=== PATIENT | male | born 1990 | race African-American/Black ===

== ENCOUNTER 2019-01-15 05:32 | Emergency (ER) | payer MEDICAID, OTHER ==
[~2019-01-15] VITALS: Ht 190.5 cm; Wt 71.0 kg
[2019-01-15] MEDS ORDERED: MORPHINE SULFATE 4 MG/ML CPJ (NOT FOR IM USE) IV STA (06:28)
[2019-01-15] MEDS ORDERED: DIPHENHYDRAMINE 50MG/ML VIAL IM STA (06:28)
[2019-01-15 07:09] LABS: BASOPHILS % 0.3 % (0.0-2.0); EOSINOPHILS % 0.3 % (0.0-5.0); HEMATOCRIT. 32.3 % (42.0-52.0); HEMOGLOBIN. 11.5 g/dL (14.0-18.0); LYMPHOCYTES % 11.5 % (20.0-50.0); MEAN CORPUSCULAR HEMOGLOBIN 32.5 pg (28.0-32.0); MEAN CORPUSCULAR VOLUME 91.4 fL (80.0-94.0); MEAN PLATELET VOLUME 9.2 fl (7.4-10.4); MONOCYTES % 12.4 % (2.0-8.0); NEUTROPHILS % 75.5 % (40.0-76.0); PLATELET 228 x1000/uL (130-400); RED BLOOD CELL COUNT 3.53 mill/uL (4.7-6.1); RED CELL DISTRIBUTION WIDTH 15.6 % (11.6-14.6)
[2019-01-15 07:37] LABS: CHLORIDE 107 mEq/L (98-107)
[2019-01-15] MEDS ORDERED: OXYCODONE HCL/ACETAMINOPHEN 5/325MG TABLET PO ONE (07:45)
[2019-01-15] MEDS ORDERED: SODIUM CHLORIDE 0.9% 1,000 ML IV ONE (10:34)
[2019-01-15] MEDS ORDERED: MORPHINE SULFATE 4 MG/ML CPJ (NOT FOR IM USE) IV ONE ×2 (10:45→12:30)
[2019-01-15 12:54] VITALS: BP 114/79
== END 2019-01-15 13:00 | disposition home or self-care (01) ==
LOC: ER 05:32
DX: D57.00 Hb-SS disease with crisis, unspecified (principal)
CPT/HCPCS: 36415; 71045; 80053; 85025; 85044; 85660; 86850; 86900; 86901; 96372; 96374; 96376; 99284; J1200; J2270; J7030

== ENCOUNTER 2019-03-17 23:03 | Emergency (ER) | payer OTHER ==
[~2019-03-17] VITALS: Ht 193 cm; Wt 67.3 kg
[2019-03-17 23:47] VITALS: BP 115/70
== END 2019-03-18 01:16 | disposition left against medical advice (07) ==
LOC: ER 23:03
DX: Z53.21 Procedure and treatment not carried out due to patient leaving prior to being seen by health care provider (principal)